=== PATIENT | male | born 1990 | race Caucasian/White ===

== ENCOUNTER 2020-02-24 11:17 | Emergency (ER) | payer OTHER ==
[~2020-02-24 11:17] MED LIST: INDOCIN 50 MG C50 MG PO; MEDROL4 MG PO
[2020-02-24] MEDS ORDERED: COLCHICINE0.6 M1 PO (11:59)
== END 2020-02-24 12:14 | disposition home or self-care (01) ==
LOC: ER1 11:17
DX: M10.071 Idiopathic gout, right ankle and foot (principal); F17.200 Nicotine dependence, unspecified, uncomplicated
CPT/HCPCS: 96372; 99283; J1100; J1885